=== PATIENT | female | born 1950 | race Caucasian/White ===

== ENCOUNTER 2019-07-01 14:51 | Outpatient (REF) | payer SELFPAY ==
[2019-07-01 16:32] LABS: Estmated Average Glucose 111; Hemoglobin A1C 5.5 % (4.0-6.0)
[2019-07-01 21:34] LABS: Chol HDL Ratio 2.85 mg/dL (0.0-4.40); Cholesterol 211 mg/dL (0-200); Glucose 81 mg/dL (65-115); HDL Cholesterol 74 mg/dL (60-100); LDL Cholesterol Calculated 125 mg/dL (50-129); LDL HDL Ratio 1.69 RATIO (0.00-3.22); Triglycerides 58 mg/dL (0-150)
== END 2019-07-01 14:52 | disposition home or self-care (01) ==
LOC: LAB 14:51
PROVIDERS: Visit Provider Dermatology
DX: Z13.9 Encounter for screening, unspecified (principal)
CPT/HCPCS: 80061; 82947; 83036

== ENCOUNTER 2019-09-26 10:53 | Emergency (ER) | payer MEDICARE, SELFPAY ==
[2019-09-26] VITALS (7 sets, daily range): BP systolic 136–162; BP diastolic 60–72; PULSE 66–75; RESP 16–20; TEMP 37; O2SAT 97–100; BMI 21.9
--- NOTE | 2019-09-26 11:06 | CTR_ITS ---
PROCEDURE INFORMATION: Exam: CT Head Without Contrast Exam date and time: 09/26/2019 11:07 AM Age: 68 years old Clinical indication: Numbness / parasthesia; Additional info: Stroke TECHNIQUE: Imaging protocol: Computed tomography of the head without contrast. Radiation optimization: All CT scans at this facility use at least one of these dose optimization techniques: automated exposure control; mA and/or kV adjustment per patient size (includes targeted exams where dose is matched to clinical indication); or iterative reconstruction. Other technique: STROKE PROTOCOL was implemented. COMPARISON: CT head wo con* [id number] 11/14/2016 9:02 AM RADIATION DOSE METRICS: Total DLP: 746.97 mGy-cm FINDINGS: Brain: Hypodensity is seen in the periventricular cerebral white matter. This change is nonspecific but is most likely secondary to chronic ischemia within microvascular distributions. Gilbert white matter distinction is maintained throughout the brain. No radiographic evidence of intracranial hemorrhage. Prior lacunar infarct left cerebellum prior lacunar infarct in the pontine medullary region suspected. Consider correlation with MRI. Ventricles: Ventricles are enlarged on the basis of mild diffuse cerebral volume loss. Bones/joints: Unremarkable. No acute fracture. Sinuses: Visualized sinuses are unremarkable. No fluid levels. Mastoid air cells: Visualized mastoid air cells are well aerated. Soft tissues: Unremarkable. Other findings: No intra or extra-axial masses, lesions or collections. CT/CT head wo con* [id number] IMPRESSION: 1. No radiographic evidence of acute intracranial pathology. 2. Prior lacunar infarct left cerebellum. Question prior lacunar infarct in the pontine medullary region suspected. Consider correlation with MRI. ASSESSMENT: ASPECTS ([place] Stroke Program Early CT Score) is 10. Radiation Dose CTDIVOL = (mGy): DLP = 746.97 (mGy-cm)
--- NOTE | 2019-09-26 11:07 | ECG_ITS ---
Measurements Intervals [place] Rate: 68 P: 63 MI: 169 QRS: 51 QRSD: 98 T: 46 QT: 397 QTc: 425 SINUS RHYTHM INCOMPLETE RIGHT BUNDLE BRANCH BLOCK [90+ ms QRS DURATION, TERMINAL R IN V1/V2, Incomplete right bundle-branch block now present Electronically Signed On 09-27-2019 11:06:50 CDT by Phu Kinsey MD [id number]
--- NOTE | 2019-09-26 11:17 | ED_ITS ---
HPI - Neuro Symptoms/Deficit General: Chief Complaint: Neuro Symptoms/Deficit Stated Complaint: RIGHT HEAD PAIN AND BLURRED VISION Time Seen by Provider: 09/26/19 11:00 History of Present Illness: HPI Narrative: Patient is a 68-year-old female who is quite active and functional. She went to bed around midnight last night feeling fine and woke up at 8 with loss of vision in her right eye. She said she could not see anything out of her right eye. The symptoms quickly resolved and she had some persistent blurry vision but that has now also resolved. She notes some numbness on the right side of her face particularly in the area of her upper lip. She has pressure in her taoism. She had a stroke several years ago and was treated with clot Buster . That stroke affected her left side. She said she recovered basically all of her normal functionality. She takes a baby aspirin, Plavix and blood pressure medicine. Onset (ago): hour(s) (3) Location: other (Right eye) History of same: No Severity: moderate Quality: numb (Right upper lip) and improving Associated symptoms: Deny chest pain, headache(s), malaise, nausea or vomiting Review of Systems General: Reports: 10 or more systems reviewed and unremarkable except in HPI and below Const: Denies: fever(s), chills, fatigue or malaise Eyes: Reports: change in vision ENMT: Denies: odynophagia Card: Denies: chest pain or swelling of feet/ankles Resp: Denies: dyspnea, productive cough or non-productive cough GI: Denies: abdominal pain, nausea or vomiting : Denies: flank pain or difficulty voiding Musc: Denies: neck pain or back pain Skin/Breast: Denies: rash Neuro: Denies: headache(s), numbness in extremities or weakness in extremities Marco/Lymph: Denies: easy bruising or easy bleeding PFS ED PFSH: Medical History Depression History of CVA (cerebrovascular accident) (~11/2016) Hypertension Seasonal allergies Family History Mother , age 81; lung CA Cancer Father , 90's CHF (congestive heart failure) Hyperlipidemia Social History Smoking and tobacco status: former smoker Quit status (tobacco): has quit using tobacco Year quit tobacco: 1989 Former quit date comment: PPD x years Second hand smoke exposure: Yes Alcohol intake: former Year of sobriety/quit date alcohol: 1991 Former alcohol use details: heavy alcohol Lives independently: Yes Household members: spouse Housing: House Marital status: Current occupational status: retired History of recent travel: No Current gender identity: Female Physical Exam Const: COMMON NORMALS: no acute distress, patient oriented x3, no limitations and alert GENERAL APPEARANCE: cooperative and comfortable HENMT: HEAD & SCALP: normal to inspection FACE & SINUS: normal facial exam Eye: COMMON NORMALS: Equal, round and reactive pupils present and fundi normal bilaterally GENERAL EYE: appearance normal, both eyes and all related structures VISUAL RUANO: No peripheral vision loss ALIGNMENT: Yes alignment normal PUPIL: Yes Equal, round and reactive pupils present and Yes Other pupil findings (slight afferent pupillary defect in the right eye) EOM: No EOM abnormal DIRECT OPHTHALMOSCOPY: Yes fundi normal bilaterally Neck/C-Spine: COMMON NORMALS: supple, no meningeal signs and no JVD Chest: COMMONS NORMALS: normal inspection of the chest Resp: COMMON NORMALS: normal respiratory effort, No use of accessory muscles and clear to auscultation bilaterally AUSCULTATION: clear to auscultation bilaterally Cardio: COMMON NORMALS: no JVD, regular rate, regular rhythm and No murmurs present (Cardio) RATE: regular rate RHYTHM: regular rhythm GI: COMMON NORMALS: Normal to inspection, nondistended, normoactive bowel sounds present, Soft to palpation and non-tender INSPECTION: Yes normal to inspection AUSCULTATION: Yes normoactive bowel sounds PALPATION: Yes Soft to palpation Back/Pelvis: COMMON NORMALS: thoracic and lumbar spine normal to inspection Extremity: COMMON NORMALS: normal to inspection Neuro: COMMON NORMALS: patient oriented x3, moves all extremities, no focal motor deficits and no sensory deficits noted SENSORIUM/ORIENTATION: Yes alert MENINGEAL SIGNS: Yes no meningeal signs Psych: COMMON NORMALS: mental status grossly normal, cooperative and normal affect Skin: COMMON NORMALS: no rashes or lesions noted and turgor normal GENERAL SKIN EXAM: no rashes or lesions noted and turgor normal Course ED course: NIHSS of zero on arrival. History of stroke a few years ago with no residual neuro deficits. Symptoms resolved at this time - having pressure in her right taoism and slight numbness on her upper lip. Consultations: Consultation #1: I spoke to Dr. Em, stroke neurologist from [facility]. He recommended a CTA to rule out carotid obstruction. He also recommended a 24-hour observation which the patient refused. I discussed with her my concern that she lived far out and actually does not even have phone access right now. She understands that but prefers to go home. She says they have a vehicle and someone will bring her back immediately if she has any f urther symptoms. He also recommended starting Lipitor. She tells me that she has not tolerated that in the past and she has been on supplements which seem to be controlling her cholesterol well. He also suggested increasing her aspirin from 81 mg to 324 mg. She understands and will do this. She also takes Plavix daily. She will call for an appointment with Dr. Schmid or with her primary care doctor. She understands a TIA is a risk factor for major stroke. She has had TPA in the past and understands the timeframe that she would need to return if she has further symptoms. Vital Signs: Vital signs: Vital Signs Temperature 98.6 F 09/26/19 10:57 Pulse Rate 73 09/26/19 16:47 Respiratory Rate 16 09/26/19 16:47 Blood Pressure 149/72 09/26/19 16:47 Pulse Oximetry 97 09/26/19 16:47 MDM - Neuro Symptoms/Deficit Lab Data: Labs: Lab Results 09/26/19 09/26/19 09/26/19 Range/Units 11:15 11:25 11:25 WBC 5.7 (4.0-10.0) 10^3/ uL RBC 4.66 (4.1-5.3) 10^6/u L Hgb 14.4 (11.5-15.3) g/dL Hct 44.0 (37.0-47.0) % MCV 94.4 (81-99) fL MCH 30.9 (28.0-34.0) pg MCHC 32.7 (30.0-36.0) g/dL RDW 13.7 (12.1-15.1) % Plt Count 274 (130-400) 10^3/c mm MPV 9.8 (7.4-10.4) fL Neut % (Auto) 67.9 % Lymph % (Auto) 18.3 % [place] % (Auto) 9.2 % Eos % (Auto) 3.5 % Baso % (Auto) 0.9 % Neut # (Auto) 3.9 (1.8-7.7) 10^3/u L Lymph # (Auto) 1.0 (0.8-4.8) 10^3/u L [place] # (Auto) 0.5 (0.2-0.9) 10^3/u L Eos # (Auto) 0.2 (0.0-0.8) 10^3/u L Baso # (Auto) 0.1 (0.0-0.1) 10^3/u L Nucleated RBC % (a uto) 0 % Nucleated RBCs # 0.0 /100WBC PT 12.90 (10.5-13.3) SECO NDS INR 0.95 (0.8-1.2) APTT 24.7 (23.9-36.7) SECO NDS Sodium (136-145) mmol/L Potassium (3.5-5.1) mmol/L Chloride (98-107) mmol/L Carbon Dioxide (22-29) mmol/L Anion Gap (5-19) BUN (8-23) mg/dL Creatinine (0.5-0.9) mg/dL GFR Calculation (90-130) mL/min Glucose (65-115) mg/dL POC Glucose 90 (70-110) mg/dL Calculated Osmolal ity (285-295) mOsm/k g Calcium (8.5-10.5) mg/dL Total Bilirubin (0.15-1.2) mg/dL AST (0-32) U/L ALT (0-33) U/L Alkaline Phosphata se (35-105) IU/L Total Protein (6.6-8.7) g/dL Albumin (3.5-5.2) g/dL Globulin (1.3-4.6) g/dL Urine Color (Yellow) Urine Appearance (CLEAR) Urine pH (5-7) Ur Specific Gravit y (1.005-1.030) Urine Protein (Negative) Urine Glucose (UA) (Normal) Urine Ketones (Negative) Urine Blood (Negative) Urine Nitrate (Negative) Urine Bilirubin (NEGATIVE) Urine Urobilinogen (Negative) mg/dL Ur Leukocyte Ev ase (Negative) Urine RBC (0-2) /hpf Urine WBC (0-5) /hpf Ur Squamous Epith Cells (0-5) Urine Bacteria (NONE) 09/26/19 09/26/19 Range/Units 11:25 12:00 WBC (4.0-10.0) 10^3/ uL RBC (4.1-5.3) 10^6/u L Hgb (11.5-15.3) g/dL Hct (37.0-47.0) % MCV (81-99) fL MCH (28.0-34.0) pg MCHC (30.0-36.0) g/dL RDW (12.1-15.1) % Plt Count (130-400) 10^3/c mm MPV (7.4-10.4) fL Neut % (Auto) % Lymph % (Auto) % [place] % (Auto) % Eos % (Auto) % Baso % (Auto) % Neut # (Auto) (1.8-7.7) 10^3/u L Lymph # (Auto) (0.8-4.8) 10^3/u L [place] # (Auto) (0.2-0.9) 10^3/u L Eos # (Auto) (0.0-0.8) 10^3/u L Baso # (Auto) (0.0-0.1) 10^3/u L Nucleated RBC % (a uto) % Nucleated RBCs # /100WBC PT (10.5-13.3) SECO NDS INR (0.8-1.2) APTT (23.9-36.7) SECO NDS Sodium 141 (136-145) mmol/L Potassium 4.1 (3.5-5.1) mmol/L Chloride 103 (98-107) mmol/L Carbon Dioxide 27 (22-29) mmol/L Anion Gap 15.1 (5-19) BUN 26 H (8-23) mg/dL Creatinine 0.8 (0.5-0.9) mg/dL GFR Calculation 70.9 L (90-130) mL/min Glucose 100 (65-115) mg/dL POC Glucose (70-110) mg/dL Calculated Osmolal ity 289 (285-295) mOsm/k g Calcium 10.3 (8.5-10.5) mg/dL Total Bilirubin 0.2 (0.15-1.2) mg/dL AST 32 (0-32) U/L ALT 43 H (0-33) U/L Alkaline Phosphata se 82 (35-105) IU/L Total Protein 7.1 (6.6-8.7) g/dL Albumin 4.5 (3.5-5.2) g/dL Globulin 2.6 (1.3-4.6) g/dL Urine Color Yellow (Yellow) Urine Appearance Clear (CLEAR) Urine pH 6 (5-7) Ur Specific Gravit y 1.015 (1.005-1.030) Urine Protein Neg (Negative) Urine Glucose (UA) Norm (Normal) Urine Ketones 1+ H (Negative) Urine Blood Neg (Negative) Urine Nitrate Positive H (Negative) Urine Bilirubin Neg (NEGATIVE) Urine Urobilinogen Norm (Negative) mg/dL Ur Leukocyte Ev ase Negative (Negative) Urine RBC None (0-2) /hpf Urine WBC Rare (0-5) /hpf Ur Squamous Epith Cells Rare (0-5) Urine Bacteria 4+ H (NONE) EKG Data^: EKG 1: EKG interpretation date: 09/26/19 EKG interpretation time: 11:23 Interpretation: sinus rhythm 68. QRS 98. normal [place] interval. No ST segment changes Discharge Plan Discharge Patient Disposition: Home, Self-Care Clinical Impression: Brain TIA Condition: Stable Prescriptions: No Action loratadine [Claritin] 10 mg tablet 10 mg PO DAILY 90 Days Qty: 90 RF: 2 fluticasone propionate [Flonase Allergy Relief] 50 mcg/actuation spray,suspension 1 spray INTRANASAL DAILY 90 Days Qty: 19.8 RF: 2 clopidogrel [Plavix] 75 mg tablet 75 mg PO DAILY Qty: 90 RF: 3 hydrochlorothiazide 12.5 mg tablet 12.5 mg PO DAILY Qty: 90 RF: 3 losartan 50 mg tablet 50 mg PO DAILY Qty: 90 RF: 3 methenamine mandelate 1 gram tablet 1 gm PO BID Qty: 60 RF: 5 multivitamin Tablet 1 tab PO DAILY RF: 0 Vitamin C 1,000 mg Tablet 1,000 mg PO BID RF: 0 aspirin 81 mg Tablet,Chewable 81 mg PO DAILY RF: 0 B-Complex Tablet 1 tab PO DAILY RF: 0 Curcumin 95 % Powder 1 % MISCELLANEOUS DAILY RF: 0 krill oil 1,188-201-27-80 mg Capsule 1 cap PO DAILY RF: 0 turmeric 400 mg Capsule 400 mg PO DAILY RF: 0 Referrals: April Schmid MD [Physician] - 7-10 days Discharge Diet: Usual diet Discharge Activity: Resume usual activity Patient Instructions: Transient Ischemic Attack (ED) Activity Restrictions/Additional Instructions: Increase your aspirin to 325 mg daily (4 baby aspirin) until you can see Dr. Schmid or your regular doctor. Return if any recurrent or new stroke type symptoms. Discharge Date/Time: 09/26/19 16:51 Coding Level of Care Code ED Vp Treasurer for Margo Fwnkechi Exam Comprehensive
[2019-09-26 11:20] LABS: Glucose Point of Care 90 mg/dL (70-110)
--- NOTE | 2019-09-26 11:20 | PC.NURSE ---
Patient blood glucose is 90
[2019-09-26 11:34] LABS: Basophils # 0.1 10^3/uL (0.0-0.1); Basophils % 0.9 %; Eosinophils # 0.2 10^3/uL (0.0-0.8); Eosinophils % 3.5 %; Hemoglobin 14.4 g/dL (11.5-15.3); Lymphocytes % 18.3 %; Mean Corpuscular HGB Conc 32.7 g/dL (30.0-36.0); Mean Corpuscular Hemoglobin 30.9 pg (28.0-34.0); Mean Corpuscular Volume 94.4 fL (81-99); Mean Platelet Volume 9.8 fL (7.4-10.4); Monocytes # 0.5 10^3/uL (0.2-0.9); Monocytes % 9.2 %; Neutrophils # 3.9 10^3/uL (1.8-7.7); Neutrophils % 67.9 %; Nucleated Red Blood Cells % 0 %; Platelet Count 274 10^3/cmm (130-400); Red Blood Count 4.66 10^6/uL (4.1-5.3); Red Cell Distribution Width 13.7 % (12.1-15.1); White Blood Count 5.7 10^3/uL (4.0-10.0)
[2019-09-26 11:43] LABS: INR 0.95 (0.8-1.2); Partial Thromboplastin Time 24.7 SECONDS (23.9-36.7)
[2019-09-26 11:46] LABS: Alanine Aminotransferase 43 U/L (0-33); Albumin Level 4.5 g/dL (3.5-5.2); Alkaline Phosphatase 82 IU/L (35-105); Anion Gap 15.1 (5-19); Aspartate Amino Transferase 32 U/L (0-32); Blood Urea Nitrogen 26 mg/dL (8-23); Calcium 10.3 mg/dL (8.5-10.5); Carbon Dioxide 27 mmol/L (22-29); Chloride 103 mmol/L (98-107); Globulin 2.6 g/dL (1.3-4.6); Glomerular Filtration Rate 70.9 mL/min (90-130); Glucose 100 mg/dL (65-115); Osmolality Calculated 289 mOsm/kg (285-295); Potassium 4.1 mmol/L (3.5-5.1); Sodium 141 mmol/L (136-145); Total Bilirubin 0.2 mg/dL (0.15-1.2); Total Protein 7.1 g/dL (6.6-8.7)
[2019-09-26 12:57] LABS: Urine Appearance Clear (CLEAR); Urine Color Yellow (Yellow)
[2019-09-26 12:58] LABS: Add Urine Microscopic? YES; Bilirubin Urine Neg (NEGATIVE); Blood Urine Neg (Negative); Glucose Urine UA Norm (Normal); Ketones Urine 1+ (Negative); Leukocyte Esterase Urine Negative (Negative); Nitrate Urine Positive (Negative); Protein Urine Neg (Negative); Specific Gravity, Urine 1.015 (1.005-1.030); Urobilinogen Urine Norm (Negative); pH Urine 6 (5-7)
[2019-09-26 13:02] LABS: Add Urine Culture? Yes; Bacteria Urine 4+; Squamous Epithelial Cell Urine RARE (0-5); WBC Urine RARE /hpf (0-5)
--- NOTE | 2019-09-26 13:22 | CTR_ITS ---
PROCEDURE INFORMATION: Exam: CT Angiography Head With Contrast Exam date and time: 09/26/2019 1:33 PM Age: 68 years old Clinical indication: Other: RT side of head pressure and tingling around month; Additional info: TIA TECHNIQUE: Imaging protocol: Computed tomography angiography of the head with intravenous contrast. Axial, coronal and sagittal reformatted images were created and reviewed. 3D rendering: MIP and/or 3D reconstructed images were created by the technologist. Radiation optimization: All CT scans at this facility use at least one of these dose optimization techniques: automated exposure control; mA and/or kV adjustment per patient size (includes targeted exams where dose is matched to clinical indication); or iterative reconstruction. Contrast material: OMNI 350; Contrast volume: 95 ml; Contrast route: RT AC; COMPARISON: CTA Head/Neck [id number] 11/14/2016 10:03 AM RADIATION DOSE METRICS: Total DLP: 1585.31 mGy-cm FINDINGS: Anterior cerebral arteries: No occlusion or significant stenosis. No aneurysm. Right internal carotid artery: Mild atherosclerotic calcification of the cavernous segment. No hemodynamically significant stenosis or occlusion. No aneurysm. Right middle cerebral artery: No occlusion or significant stenosis. No aneurysm. Right posterior cerebral artery: No occlusion or significant stenosis. No aneurysm. Right vertebral artery: No occlusion or significant stenosis. No aneurysm. Left internal carotid artery: Mild atherosclerotic calcification of the cavernous segment. No hemodynamically significant stenosis or occlusion. No aneurysm. Left middle cerebral artery: No occlusion or significant stenosis. No aneurysm. Left posterior cerebral artery: No occlusion or significant stenosis. No aneurysm. Left vertebral artery: No occlusion or significant stenosis. No aneurysm. Basilar artery: No occlusion or significant stenosis. No aneurysm. HEAD: Sinuses: Minimal ethmoid and right sphenoid sinus mucosal thickening. IMPRESSION: 1. No hemodynamically significant stenosis. 2. Additional findings, as above. PROCEDURE INFORMATION: Exam: CT Angiography Neck With Contrast Exam date and time: 09/26/2019 1:33 PM Age: 68 years old Clinical indication: Other: RT side of head pressure and tingling around month; Additional info: TIA TECHNIQUE: Imaging protocol: Computed tomography angiography of the neck with intravenous contrast. Axial, coronal and sagittal reformatted images were created and reviewed. 3D rendering: MIP and/or 3D reconstructed images were created by the technologist. Radiation optimization: All CT scans at this facility use at least one of these dose optimization techniques: automated exposure control; mA and/or kV adjustment per patient size (includes targeted exams where dose is matched to clinical indication); or iterative reconstruction. Contrast material: OMNI 350; Contrast volume: 95 ml; Contrast route: RT AC; COMPARISON: CTA Head/Neck [id number] 11/14/2016 10:03 AM RADIATION DOSE METRICS: Total DLP: 1585.31 mGy-cm FINDINGS: Right common carotid artery: No stenosis. No dissection or occlusion. Right internal carotid artery: Normal. Extracranial segment patent with no significant stenosis. No dissection or occlusion. Right external carotid artery: No occlusion or stenosis of the origin. Right vertebral artery: No stenosis. No dissection or occlusion. Left common carotid artery: No stenosis. No dissection or occlusion. Left internal carotid artery: Normal. Extracranial segment patent with no significant stenosis. No dissection or occlusion. Left external carotid artery: No occlusion or stenosis of the origin. Left vertebral artery: No stenosis. No dissection or occlusion. Thyroid: Nodular thyroid gland, similar to prior and likely due to goiter. Bones/joints: No acute osseous abnormality. Mild reversal of the normal cervical lordosis. Mild retrolisthesis of C4 on C5, C5 on C6 and C6 on C7. Mild multilevel degenerative changes, characterized by disc space narrowing, osteophytosis and uncovertebral and facet joint hypertrophy. Mild multilevel spinal canal and neural foraminal narrowing. Soft tissues: Unremarkable. Lungs: Nodular biapical pleural thickening, similar to prior. CT/CT angio headneck* [id number] IMPRESSION: 1. No hemodynamically significant stenosis. 2. Additional findings, as above. REFERENCES: NASCET CRITERIA. The degree of internal carotid artery stenosis is based on NASCET criteria. Normal is no stenosis. Mild is less than 50% stenosis. Moderate is 50-69% stenosis. Severe is 70% to 99% stenosis. Total occlusion is no detectable patent lumen. Radiation Dose CTDIVOL = (mGy): DLP = 1585.31~1585.31 (mGy-cm)
[2019-09-26] MEDS: iohexol 350 mg/mL 100 mL Btl IV (14:43)
--- NOTE | 2019-09-29 15:06 | DCPLANNER ---
manager infusion had message to schedule a follow up appointment for patient with Dr. Schmid. manager infusion called the office of Dr. Schmid, gave clinic patients information. manager infusion was told that patients information would be printed and reviewed. Clinic will call patient with appointment information. manager infusion will call for appointment information.
--- NOTE | 2019-10-01 14:17 | DCPLANNER ---
Patient has a follow up appointment scheduled for Saturday, October 12, 2019 at 11:[address] Schmid. Clinic will call patient with appointment information.
--- NOTE | 2019-10-23 12:40 | DCPLANNER ---
Patient did attend appointment scheduled for 10.12.[address] Schmid.
== END 2019-09-26 16:51 | disposition home or self-care (01) ==
PROVIDERS: Emergency Provider Emergency Medicine
DX: G45.9 Transient cerebral ischemic attack, unspecified (principal); Z79.82 Long term (current) use of aspirin; I10 Essential (primary) hypertension; Z87.891 Personal history of nicotine dependence; Z79.899 Other long term (current) drug therapy
CPT/HCPCS: 12345; 36415; 36416; 70450; 70496; 70498; 80053; 81001; 82962; 85025; 85610; 85730; 87077; 87086; 87186; 93005; 93010; 99283; 99284; Q9967

== ENCOUNTER → 2019-10-12 11:45 | Outpatient (BNVA) | payer MEDICARE, SELFPAY | PROVIDERS: PCP Nurse Practitioner Family; Visit Provider Nurse Practitioner | DX: Z86.73 Personal history of transient ischemic attack (TIA), and cerebral infarction without residual deficits (principal); Z87.891 Personal history of nicotine dependence | CPT/HCPCS: 99204; 99999 ==

== ENCOUNTER → 2019-11-05 08:57 | Outpatient (BNVA) | payer MEDICARE, SELFPAY | PROVIDERS: PCP Nurse Practitioner Family; Visit Provider Nurse Practitioner | DX: I99.8 Other disorder of circulatory system (principal); I10 Essential (primary) hypertension; Z86.73 Personal history of transient ischemic attack (TIA), and cerebral infarction without residual deficits; Z79.899 Other long term (current) drug therapy | CPT/HCPCS: 80061; 80076; 82607; 84443 ==

== ENCOUNTER 2019-11-13 14:01 | Outpatient (CLI) | payer MEDICARE, SELFPAY ==
--- NOTE | 2019-11-13 14:15 | USCV_ITS ---
Almas Carroll Age: 69 Gender: F : 1950 Exam Date: 11/13/2019 14:35 Ordering Phys: Phu BealP MSN AGACNP-BC Technologist: Milton Henry Exam Location: [facility] Indication: tachycardia BP: 125 / 76 HR: 66 Rhythm: Sinus Technical Quality: Adequate MEASUREMENTS (Male / Female) Normal Values 2D ECHO LV Diastolic Diameter PLAX 3.0 cm 4.2 - 5.9 / 3.9 - 5.3 cm LV Systolic Diameter PLAX 2.6 cm IVS Diastolic Thickness 1.0 cm 0.6 - 1.0 / 0.6 - 0.9 cm IVS Systolic Thickness 1.3 cm LVPW Diastolic Thickness 1.1 cm 0.6 - 1.0 / 0.6 - 0.9 cm LVPW Systolic Thickness 1.1 cm LVOT Diameter 2.1 cm LV Ejection Fraction 2D Teich 26.9 % LV Ejection Fraction MOD 2C 71.5 % LV Ejection Fraction 2C AL 71.7 % LA Diameter 3.7 cm LA Width 3.3 cm LA Height 3.4 cm RA Width 3.1 cm RA Height 3.4 cm Aorta at Sinotubular Diameter 3.2 cm M-MODE LV Diastolic Diameter MM 5.4 cm 4.2 - 5.9 / 3.9 - 5.3 cm LV Systolic Diameter MM 3.2 cm LV Ejection Fraction MM Teich 71.5 % IVS Diastolic Thickness MM 0.8 cm 0.6 - 1.0 / 0.6 - 0.9 cm IVS Systolic Thickness MM 1.4 cm LVPW Diastolic Thickness MM 1.1 cm 0.6 - 1.0 / 0.6 - 0.9 cm LVPW Systolic Thickness MM 1.5 cm RV Diastolic Diameter MM 1.1 cm Aortic Annulus Diameter 2.8 cm LA Ao Ratio MM 1.3 MV E Point Septal Separation 1.3 cm DOPPLER AV Peak Velocity 124.0 cm/s LVOT Peak Velocity 91.0 cm/s AV Area Cont Eq vti 2.3 cm squared AV Area Cont Eq pk 2.5 cm squared MV Area PHT 5.0 cm squared Mitral E to A Ratio 0.9 MV E' Velocity 12.0 cm/s Mitral E to MV E' Ratio 6.8 Mitral E to LV E' Lateral Ratio 6.8 Mitral E to LV E' Septal Ratio 6.8 TR Peak Velocity 85.0 cm/s TR Peak Gradient 2.9 mmHg TV Peak E Velocity 101.0 cm/s Right Atrial Pressure 3.0 mmHg Pulmonary Artery Systolic Pressu 5.9 mmHg FINDINGS Left Ventricle Normal left ventricular cavity size. Normal left ventricular systolic function. No regional wall motion abnormalities. Left ventricular ejection fraction is estimated at 65 %. Grade I/IV diastolic dysfunction (abnormal relaxation filling pattern), normal to mildly elevated filling pressures. Right Ventricle The right ventricle is normal in size and function. Right Atrium The right atrium is normal in size. Left Atrium The left atrium is normal in size. Mitral Valve Mildly thickened mitral valve. No mitral valve stenosis. Trace mitral valve regurgitation. Aortic Valve Structurally normal aortic valve without significant sclerosis or stenosis. There is no aortic regurgitation. Tricuspid Valve Mild tricuspid valve regurgitation. Pulmonic Valve Structurally normal pulmonic valve without significant stenosis. There is no pulmonic regurgitation. Pericardium Normal pericardium without effusion. Aorta Normal ascending aorta dimension. CONCLUSIONS 1-Normal left ventricular cavity size. Normal left ventricular systolic function. No regional wall motion abnormalities. Left ventricular ejection fraction is estimated at 65 %. Grade I/IV diastolic dysfunction (abnormal relaxation filling pattern), normal to mildly elevated filling pressures. 2-Mildly thickened mitral valve. No mitral valve stenosis. Trace mitral valve regurgitation. 3-Structurally normal aortic valve without significant sclerosis or stenosis. There is no aortic regurgitation. 4-Mild tricuspid valve regurgitation. 5-There is no pericardial effusion. 6-Right atrial pressure is around 5 mm of mercury. 7-No significant change since the prior echocardiogram study of 11/15/2016. Kulwinder Singh MD (Electronically Signed) Final Date: 16 November 2019 20:30 S
== END 2019-11-13 14:02 | disposition home or self-care (01) ==
LOC: RAD 14:06
PROVIDERS: PCP Nurse Practitioner Family; Visit Provider Nurse Practitioner
DX: I99.8 Other disorder of circulatory system (principal); R00.0 Tachycardia, unspecified; I05.9 Rheumatic mitral valve disease, unspecified; I07.1 Rheumatic tricuspid insufficiency
CPT/HCPCS: 93306

== ENCOUNTER → 2020-06-30 12:02 | Outpatient (BNVA) | payer MEDICARE, SELFPAY | PROVIDERS: PCP Nurse Practitioner Family; Visit Provider Nurse Practitioner Family | DX: I10 Essential (primary) hypertension (principal); F32.9 Major depressive disorder, single episode, unspecified; Z86.73 Personal history of transient ischemic attack (TIA), and cerebral infarction without residual deficits; Z79.899 Other long term (current) drug therapy | CPT/HCPCS: 80053; 80061; 83540; 84443; 85025 ==

== ENCOUNTER 2020-10-26 13:38 | Outpatient (CLI) | payer MEDICARE, SELFPAY ==
--- NOTE | 2020-10-26 13:47 | MM_ITS ---
WS: [id number] SCREENING DIGITAL MAMMOGRAM WITH CAD HISTORY: SCREENING COMPARISON: 01/01/2012 Bilateral CC and MLO views submitted. Computer aided detection analyzed. Breast composition: There are scattered areas of fibroglandular density. Lobulated nodules just benea th the skin surface along the anterior LEFT breast just medial and inferior to the nipple. These may be small superficial veins. Benign calcification in the RIGHT breast. MM/[place] [id number] IMPRESSION: BI-RADS: 0-Incomplete: Need additional imaging evaluation FOLLOW UP: Need Additional Imaging LEFT breast: Spot compression views (CC and MLO). True ML. Ultrasound to follow if abnormality persists.
== END 2020-10-26 13:39 | disposition home or self-care (01) ==
LOC: RADSHAW 13:44
PROVIDERS: PCP Nurse Practitioner Family; Visit Provider Nurse Practitioner Family
DX: Z12.31 Encounter for screening mammogram for malignant neoplasm of breast (principal)
CPT/HCPCS: 77067

== ENCOUNTER 2020-11-17 12:59 | Outpatient (CLI) | payer MEDICARE, SELFPAY ==
--- NOTE | 2020-11-17 13:12 | US_ITS ---
WS: [id number] ADDITIONAL VIEWS LEFT MAMMOGRAM LEFT BREAST ULTRASOUND HISTORY: ABNORMAL MAMMOGRAM COMPARISON: 10/26/2020 and 01/01/2012 LEFT MAMMOGRAM: Spot compression views and true ML. There is slight nodular asymmetry just inferior to the nipple persists. I favor this is probably part of the vessel. This does not completely resolve with additional imaging. LEFT BREAST ULTRASOUND 2-D and color Doppler imaging submitted. Ultrasound directed inferior to the nipple along the very superficial surface of the breast. No suspi cious mass or nodule. There are a few small minimally prominent ducts posterior and inferior to the n ipple which may be the abnormality seen radiographically. No suspicious mass. US/US breast LT limited* [id number] IMPRESSION: BI-RADS: 2-Benign FOLLOW UP: 1 Year Follow-up
== END 2020-11-17 13:00 | disposition home or self-care (01) ==
LOC: RADSHAW 13:04
PROVIDERS: PCP Nurse Practitioner Family; Visit Provider Nurse Practitioner Family
DX: R92.8 Other abnormal and inconclusive findings on diagnostic imaging of breast (principal); N64.89 Other specified disorders of breast
CPT/HCPCS: 76642; 77065

== ENCOUNTER → 2020-11-21 16:37 | Outpatient (BNVA) | payer MEDICARE, SELFPAY | PROVIDERS: PCP Nurse Practitioner Family; Visit Provider Nurse Practitioner Family | DX: Z12.11 Encounter for screening for malignant neoplasm of colon (principal) | CPT/HCPCS: 82270 ==

== ENCOUNTER → 2021-07-27 10:33 | Outpatient (BNVA) | payer MEDICARE, SELFPAY | PROVIDERS: PCP Nurse Practitioner Family; Visit Provider Nurse Practitioner Family | DX: I10 Essential (primary) hypertension (principal); R10.11 Right upper quadrant pain; Z00.00 Encounter for general adult medical examination without abnormal findings; Z87.440 Personal history of urinary (tract) infections; J30.2 Other seasonal allergic rhinitis; Z86.73 Personal history of transient ischemic attack (TIA), and cerebral infarction without residual deficits | CPT/HCPCS: 80053; 80061; 82607; 83735; 84443; 85025 ==

== ENCOUNTER → 2022-08-09 11:07 | Outpatient (BNVA) | payer MEDICARE, SELFPAY | PROVIDERS: PCP Nurse Practitioner Family; Visit Provider Nurse Practitioner Family | DX: R10.11 Right upper quadrant pain (principal); Z87.440 Personal history of urinary (tract) infections; Z86.73 Personal history of transient ischemic attack (TIA), and cerebral infarction without residual deficits; Z23 Encounter for immunization | CPT/HCPCS: 81003; 87086 ==

== ENCOUNTER → 2022-08-13 14:09 | Outpatient (BNVA) | payer MEDICARE, SELFPAY | PROVIDERS: PCP Nurse Practitioner Family; Visit Provider Nurse Practitioner Family | DX: Z00.00 Encounter for general adult medical examination without abnormal findings (principal); I10 Essential (primary) hypertension | CPT/HCPCS: 80053; 80061; 84443; 85025 ==

== ENCOUNTER 2023-06-13 12:54 | Outpatient (CLI) | payer MEDICARE, SELFPAY ==
--- NOTE | 2023-06-13 13:15 | US_ITS ---
WS: [id number] INDICATION: Enlarged lymph nodes TECHNIQUE: Ultrasound RIGHT axilla FINDINGS: Ultrasound RIGHT axilla area of concern. No lymphadenopathy. No cystic or solid lesions. No suspicious findings in the area of concern RIGHT axilla. IMPRESSION: Normal RIGHT axillary ultrasound
== END 2023-06-13 12:55 | disposition home or self-care (01) ==
LOC: RAD 12:55
PROVIDERS: PCP Nurse Practitioner Family; Visit Provider Nurse Practitioner Family
DX: R59.0 Localized enlarged lymph nodes (principal)
CPT/HCPCS: 76882

== ENCOUNTER → 2023-08-20 11:37 | Outpatient (BNVA) | payer MEDICARE, SELFPAY | PROVIDERS: PCP Nurse Practitioner Family; Visit Provider Nurse Practitioner Family | DX: Z87.440 Personal history of urinary (tract) infections (principal); Z86.73 Personal history of transient ischemic attack (TIA), and cerebral infarction without residual deficits; I10 Essential (primary) hypertension | CPT/HCPCS: 80053; 80061; 84443; 85025 ==

== ENCOUNTER 2023-09-17 15:07 | Outpatient (CLI) | payer MEDICARE, SELFPAY ==
--- NOTE | 2023-09-17 15:30 | MM_ITS ---
WS: [id number] BILATERAL 3D TOMOSYNTHESIS DIGITAL SCREENING MAMMOGRAPHY WITH CAD CLINICAL INFORMATION: Z12.39 - Encounter for other screening for malignant neop... HISTORY: Screening mammogram. No current complaints. COMPARISON: 2020 TECHNIQUE: Bilateral CC and MLO views. FINDINGS: The breasts are composed of heterogeneous fibroglandular density tissue, which can limit the detectio n of small underlying mass lesions. No suspicious mass, asymmetry, calcifications, or architectural d istortion. No evidence of malignancy. Benign calcification RIGHT breast. Vascular calcifications. MM/[place] [id number] IMPRESSION: BI-RADS: 2-Benign FOLLOW UP: 1 Year Follow-up Recommend return to annual screening mammography.
== END 2023-09-17 15:08 | disposition home or self-care (01) ==
LOC: MOBLMAM 15:15
PROVIDERS: PCP Nurse Practitioner Family; Visit Provider Nurse Practitioner Family
DX: Z12.31 Encounter for screening mammogram for malignant neoplasm of breast (principal)
CPT/HCPCS: 77063; 77067

== ENCOUNTER → 2024-08-19 10:36 | Outpatient (BNVA) | payer MEDICARE, SELFPAY | PROVIDERS: PCP Nurse Practitioner Family; Visit Provider Nurse Practitioner Family | DX: I10 Essential (primary) hypertension (principal) | CPT/HCPCS: 80053; 80061; 84443; 85025 ==

== ENCOUNTER → 2025-01-27 11:32 | Outpatient (BNVA) | payer MEDICARE, SELFPAY | PROVIDERS: PCP Nurse Practitioner Family; Visit Provider Nurse Practitioner Family | DX: M11.261 Other chondrocalcinosis, right knee (principal) | CPT/HCPCS: 73562 ==